=== PATIENT | male | born 1965 | race African-American/Black ===

== ENCOUNTER 2016-12-26 17:14 | Emergency (ER) | payer SELFPAY ==
[~2016-12-26] VITALS: Ht 188 cm; Wt 97.5 kg
[2016-12-26 19:04] VITALS: BP 138/78
== END 2016-12-26 19:06 | disposition home or self-care (01) ==
LOC: ER 17:14
DX: S43.005A Unspecified dislocation of left shoulder joint, initial encounter (principal); W01.0XXA Fall on same level from slipping, tripping and stumbling without subsequent striking against object, initial encounter; Y93.01 Activity, walking, marching and hiking; Y92.89 Other specified places as the place of occurrence of the external cause; Y99.8 Other external cause status; F17.210 Nicotine dependence, cigarettes, uncomplicated
CPT/HCPCS: 23650; 73030

== ENCOUNTER 2022-07-14 22:42 | Emergency (ER) | payer MEDICAID ==
[~2022-07-14] VITALS: Ht 182.9 cm; Wt 90.0 kg
[2022-07-14 23:35] LABS: Basophils # (auto) 0 10 ^3/uL (0-0.2); Basophils % (auto) 0.4 % (0.0-2.0); Eosinophils # (auto) 0 10 ^3/uL (0-0.8); Eosinophils % (auto) 0.2 % (0.0-7.0); Hematocrit 39.2 % (41.0-53.0); Hemoglobin 13.1 g/dL (13.5-17.5); Lymphocytes # (auto) 1.6 10 ^3/uL (0.4-5.4); Lymphocytes % (auto) 13.7 % (10.0-50.0); Mean Corpuscular Hemoglobin 33.3 pg (28.0-32.0); Mean Corpuscular Hgb Conc. 33.4 g/dL (32.0-36.0); Mean Corpuscular Volume 99.7 fL (80.0-100.0); Monocytes # (auto) 1.1 10 ^3/uL (0-1.3); Monocytes % (auto) 9.4 % (0.0-12.0); Neutrophils # (auto) 9.1 10 ^3/uL (1.6-8.6); Neutrophils % (auto) 76.3 % (37.0-80.0); Red Blood Cells 3.93 10^6/uL (4.5-5.90); Red Cell Distribution Width 13.9 % (11.8-14.3)
[2022-07-14 23:54] LABS: Alanine Aminotransferase 42 U/L (16-61); Albumin 3.9 g/dL (3.4-5.0); Anion Gap 7 (5-15); Aspartate Aminotransferase 82 U/L (15-37); BUN/Creatinine Ratio 27.3 (10.0-20.0); Blood Alcohol < 3.0 mg/dL (0-5); Blood Urea Nitrogen 30 mg/dL (7-18); Calcium 9.1 mg/dL (8.5-10.1); Carbon Dioxide 26 mmol/L (21-32); Chloride 103 mmol/L (98-107); GFR African American 88 mL/min; GFR Non-African American 73 mL/min; Glucose 98 mg/dL (74-106); Potassium 3.7 mmol/L (3.5-5.1); Sodium 136 mmol/L (136-145)
[2022-07-14 23:57] LABS: Alkaline Phosphatase 105 U/L (45-117); Bilirubin, Total 1.6 mg/dL (0.2-1.0); Total Protein 7.9 g/dL (6.4-8.2)
[2022-07-15] MEDS ORDERED: diphenhdrAMINE HCL 50 MG/1 ML VL IM ONE
[2022-07-15] MEDS ORDERED: LORazepam 2MG/ML-1ML VIAL IM ONE
[2022-07-15] MEDS ORDERED: HALOPERIDOL LACTATE 5 MG/ML INJ VIAL IM ONE
[2022-07-15 03:05] LABS: Urine Bacteria NONE SEEN /hpf (None Seen); Urine Blood 2+ /uL (Negative); Urine Hyaline Cast FEW /lpf (0 - 2); Urine Mucus FEW (None Seen); Urine Specific Gravity 1.038 (1.001-1.035); Urine WBC 2 /hpf (0 - 3)
[2022-07-15 03:27] LABS: Alcohol, Urine < 3.0 mg/dL (0-10); Amphetamine Screen, Urine NEGATIVE (NEGATIVE); Barbiturate Scree,Urine NEGATIVE (NEGATIVE); Benzodiazephine Screen, Urine POSITIVE (NEGATIVE); Cannabinoid Screen, Urine POSITIVE (NEGATIVE); Cocaine Screen, Urine POSITIVE (NEGATIVE)
[2022-07-15 03:34] LABS: Opiate Scree,Urine NEGATIVE (NEGATIVE); Phencyclidine Screen, Urine NEGATIVE (NEGATIVE)
[2022-07-15 03:57] LABS: Salicylate 2.7 mg/dL (2.8-20.0)
[2022-07-15 04:04] LABS: Acetaminophen < 2.0 ug/mL (10-30)
[2022-07-15] MEDS ORDERED: OLANZapine 5 MG TAB PO PRN (18:30)
[2022-07-16] MEDS: OLANZapine 5 MG TAB PO SCH (22:33)
[2022-07-17] MEDS: OLANZapine 5 MG TAB PO SCH ×3 (11:00→22:11)
[2022-07-18] MEDS: OLANZapine 5 MG TAB PO SCH ×2 (11:17→22:40)
[2022-07-19 08:55] VITALS: BP 152/76
[2022-07-19] MEDS: OLANZapine 5 MG TAB PO SCH (10:48)
[2022-07-19] MEDS ORDERED: OLANZapine 5 MG TAB PO SCH (22:00)
[2022-07-19] MEDS ORDERED: OLAN15TA31 PO (22:01)
== END 2022-07-19 19:08 | disposition home or self-care (01) ==
LOC: EDBD 22:42 → ER 22:42
DX: R45.850 Homicidal ideations (principal); F23 Brief psychotic disorder; F17.210 Nicotine dependence, cigarettes, uncomplicated
CPT/HCPCS: 36415; 80053; 80307; 80320; 80329; 81001; 83605; 83880; 84484; 85025; 96372; 99285; J1200; J1630; J2060